=== PATIENT | male | born 2005 | race African-American/Black ===

== ENCOUNTER 2025-01-02 04:24 | Observation (INO) ==
[2025-01-02] MEDS: DEXAMETHASONE SOD INJ 4 MG/ML VIAL IV STA (04:54)
[2025-01-02] MEDS: SODIUM CHLORIDE 0.9% 1,000 ML IV ONE (04:56)
[2025-01-02] MEDS: OPTIRAY 320 100ml IV ONE (05:00)
[2025-01-02] MEDS: AMPICILLIN/SULBACTAM SOD 3,000 MG/100 ML BAG IV STA (05:01)
--- NOTE | 2025-01-02 05:07 | Emergency Department Note ---
Impression & Plan Tonsillar abscess ED Provider Note CHIEF COMPLAINT: "I had a cyst in my throat drained and it is filling back up" HISTORY OF PRESENT ILLNESS: This 19-year-old male patient presents to the emergency department via private vehicle for evaluation of tonsillar abscess. The patient states he had a tonsillar abscess I&D done on 12/20/2024. Per record review, there was not significant drainage and this was felt to be phlegmon/cellulitis of the left tonsil. The patient states over the past 24 hours, he has developed increased swelling, pain, and difficulty swallowing. He states that he took 1 Advil prior to arrival without relief. The patient denies any fever but has had chills and sweating. He is having difficulty swallowing due to the swelling in the throat. He states he is having a little bit of difficulty breathing. The patient denies any congestion or runny nose. He denies any cough. He denies any trauma or injury to the area. He was on a course of antibiotics and steroids but discontinued these recently. History provided by: Patient REVIEW OF SYSTEMS: A 10 system review of systems was performed with positives and pertinent negatives listed in the history of present illness. All other systems were reviewed and are negative. ALLERGIES: NKDA PHYSICAL EXAM: VITALS: Vitals are noted on the nurse's note and reviewed by myself. GENERAL: This is a 19-year-old male, in no acute distress, nondiaphoretic, well- developed well-nourished. SKIN: The skin was without rashes, erythema, edema, or bruising. There is no tenting of the skin. Capillary refill less than 2 seconds. HEAD: Normocephalic atraumatic. EYES: Pupils equal round and reactive to light and accommodation. Conjunctivae without injection, sclerae without icterus. Extraocular movements intact. NOSE: Patent, turbinates without inflammation or discharge. No sinus tenderness. MOUTH: Mucous membranes moist. Bilateral tonsillar enlargement with erythema and edema. The edema does extend toward the hard palate on the left. No exudate. Uvula midline. Airway patent. No stridor. Tongue does not deviate. NECK: Supple without nuchal rigidity. Anterior cervical lymphadenopathy. Cervical spine is nontender. No JVD. HEART: Regular rate and rhythm without murmurs gallops or rubs. LUNGS: Clear to auscultation bilaterally without wheezes, rales or rhonchi. No retractions or accessory muscle use. MUSCULOSKELETAL: No muscle atrophy, erythema, or edema noted. Full range of motion without joint tenderness in all extremities. No tenderness to palpation. Normal gait. Strength 5/5 throughout. NEURO: Patient was alert and oriented to person place and time. No focal neurological deficits. An order was placed for continuous teaching aide. The monitor showed a normal sinus rhythm at a ventricular rate of 82 bpm, per my interpretation. Imaging as interpreted by myself and the radiologist revealed a 20 x 28 x 30 mm left tonsillar abscess with enlargement of the bilateral palatine tonsils causing effacement of the oropharyngeal airway, with radiologist interpretation as above. I agree with the radiologist's findings as based upon my independent interpretation. EMERGENCY DEPARTMENT COURSE: The patient was evaluated as above. The patient presents to the emergency department due to concern for a left tonsillar abscess. The patient had I&D attempted on 12/20/2024. This did not yield much fluid and he was placed on steroids and antibiotics. He was doing better until more recently when he developed sudden worsening of the swelling and pain. Examination was concerning for tonsillar enlargement with erythema and edema. No exudate. IV access was obtained, labs were drawn. The patient was medicated with IV Unasyn, dexamethasone, and IV fluids. He was given Zofran and morphine for pain. CT imaging was completed and reviewed by myself and radiologist as noted. This is concerning for left tonsillar abscess and bilateral palatine tonsillar enlargement causing effacement of the oropharyngeal airway. I discussed the case with ENT, Dr. To. He did agree to evaluate the patient this morning, likely within the next hour. Please see his dictation regarding this consultation. Did recommend admission. I discussed the case with Dr. Mccormack, [facility] hospitalist physician. The patient will be admitted to the [facility]. Please see hospitalist dictation regarding admission. Case was discussed with the attending physician. I attest that I have personally reviewed the patient medication list. I attest that I have reviewed the patient's blood pressure and it was found to be elevated. Suspect this to be situational in nature. GCS: 15 In the evaluation and treatment of this patient the following differential diagnoses were entertained: Viral syndrome, strep pharyngitis, tonsillitis, mononucleosis, retropharyngeal abscess, peritonsillar abscess, otitis media, sinusitis, bronchitis, pneumonia, as well as other pathologies. The chart was completed utilizing [employer] Speech voice recognition software. Grammatical errors, random word insertions, pronoun errors, and incomplete sentences are an occasional consequence of this system due to software limitations, ambient noise, and hardware issues. Any formal questions or concerns about the content, text, or information contained within the body of this dictation should be directly addressed to the provider for clarification. Past Med/Surg History Problem List (Updated 01/02/25 @ 06:38 by Madina Terrell PA-C) Tonsillar abscess (Acute) Surgical History History of tooth extraction History of right knee surgery Family History (Updated 12/20/24 @ 14:28 by Elham Villanueva) Other No family history of adverse response to anesthesia No family history of bleeding disorder Social History Smoking Status: Current every day smoker Cigarettes Per Day: marijuana; Do You Dip or Chew Tobacco: No; Hx Alcohol Use: No Hx Substance Use: Yes Non-Prescribed Medications: Marijuana Non-Prescribed Medications Comment: Does not have medical marijuana card Preferred Language: Tuvaluan Feels Safe at Home: Yes Allergies Allergies Allergy/AdvReac Type Severity Reaction Status Date / Time No Known Drug Allergies Allergy Verified 12/20/24 14:28 Home Meds Previous Rx's Medication Instructions Recorded amoxicillin 250 mg-potassium 10 ml PO TID #2 BTLS 12/20/24 clavulanate 62.5 mg/5 mL oral suspension (Augmentin) prednisone 20 mg tablet 40 mg (2 x 20 mg) PO DAILY #14 tabs 12/20/24 Results & Data (ED) Vital Signs Vital Signs - 24 hr 01/02/25 04:28 01/02/25 04:49 01/02/25 05:20 Temperature 37.3 C Temperature Source Oral Pulse Rate 94 H 82 70 Pulse Rhythm Regular Regular Pulse Strength Normal Respiratory Rate 18 20 Respiratory Effort / Characteristics Non-Labored Spontaneous Respiratory Depth Normal Respiratory Pattern Regular Blood Pressure 142/101 H Blood Pressure Mean 114 Blood Pressure Position Sitting Pulse Oximetry 98 99 Oxygen Delivery Method Room Air Room Air Sepsis Recent Fever Within 48 Hours No Sepsis New/Unexplained Change in Mental Status N/A Sepsis Action Taken by Nursing No Action Required Laboratory Data 01/02/25 04:37 01/02/25 04:37 Lab Results 01/02/25 Range/Units 04:37 WBC 22.98 H (4.8-10.8) K/ul RBC 4.09 L (4.70-6.10) M/uL Hgb 12.6 L (14.0-18.0) g/dl Hct 38.6 L (42.0-52.0) % MCV 94.4 (80.0-100.0) fL MCH 30.8 (25.0-34.0) pg MCHC 32.6 (32.0-36.0) g/dL RDW Std Deviation 43.2 (36.4-46.3) fL RDW Coeff of Nuris 12.6 (11.5-14.5) % Plt Count 332 (130-400) K/uL MPV 10.4 (9.4-12.4) fL Immature Gran % (Auto) 0.7 % Neut % (Auto) 83.9 % Lymph % (Auto) 6.8 % [place] % (Auto) 8.1 % Eos % (Auto) 0.3 % Baso % (Auto) 0.2 % Neut # (Auto) 19.30 H (1.40-6.50) K/uL Lymph # (Auto) 1.56 (1.20-3.40) K/uL [place] # (Auto) 1.86 H (0.11-0.59) K/uL Eos # (Auto) 0.06 (0.00-0.50) K/uL Baso # (Auto) 0.05 (0.00-0.20) K/uL Immature Gran # (Auto) 0.15 (0.01-0.20) K/uL Sodium 140 (136-145) mmol/L Potassium 3.7 (3.5-5.1) mmol/L Chloride 104 (98-107) mmol/L Carbon Dioxide 30 (21-32) mmol/L Anion Gap 6 (3-11) BUN 9 (6-23) mg/dl Creatinine 1.25 (0.6-1.4) mg/dl Est Cr Clr Drug Dosing 90.4 ml/min eGFR 84.02 BUN/Creatinine Ratio 7.2 L (10-20) Glucose 113 H (70-99(Fasting)) mg/dl Calcium 9.1 (8.6-10.3) mg/dl Total Bilirubin 0.7 (0.2-1.0) mg/dl AST 19 (13-39) U/L ALT 21 (7-52) U/L Alkaline Phosphatase 73 (34-104) U/L Total Protein 7.8 (6.0-8.3) gm/dl Albumin 4.1 (3.4-5.0) gm/dl Globulin 3.7 (2.5-4.0) gm/dl Albumin/Globulin Ratio 1.1 (0.9-2) Monoscreen Negative (Negative) Administered Medications Discontinued Medications Dexamethasone (Dexamethasone Sod Inj 4 Mg/Ml Vial) 10 mg IV NOW STA Stop: 01/02/25 04:48 Last Admin: 01/02/25 04:54 Dose: 10 mg Documented By: KONG Ampicillin Sodium/Sulbactam Sodium (Unasyn) 3,000 mg in 100 mls @ 200 mls/hr IV NOW STA Stop: 01/02/25 05:16 Last Infusion: 01/02/25 05:31 Dose: Infused Documented By: Admin: 01/02/25 05:01 Dose: 200 mls/hr Documented By: KONG Sodium Chloride (Nss) 1,000 mls @ 999 mls/hr IV .Q1H1M ONE Stop: 01/02/25 05:47 Last Admin: 01/02/25 04:56 Dose: 999 mls/hr Documented By: KONG Ioversol (Optiray 320 100ml) 94 ml IV ONCE ONE Stop: 01/02/25 05:01 Last Admin: 01/02/25 05:00 Dose: 94 ml Documented By: PATRICK Morphine Sulfate (Morphine Sulfate 4 Mg/Ml 1 Ml Carp\\Vial) 4 mg IV NOW STA Stop: 01/02/25 05:21 Last Admin: 01/02/25 05:30 Dose: 4 mg Documented By: SHAHIDA Ondansetron HCl (Ondansetron Inj 2 Mg/Ml 2 Ml Vial) 4 mg IV NOW STA Stop: 01/02/25 05:21 Last Admin: 01/02/25 05:30 Dose: 4 mg Documented By: SHAHIDA Imaging Data Radiologist's Impression: Soft Tissue Neck CT 01/02/25 04:47 EXAM: CT soft tissue neck w con CLINICAL HISTORY: TELECOM BILLING ANALYST TECHNIQUE: Computed tomography of the neck was performed with intravenous contrast. Contiguous axial images were obtained. Reformatted coronal and sagittal images were also reviewed. If IV contrast material had not been administered, the likelihood of detecting abnormalities relevant to the patient's condition would have been substantially decreased. The CT scan was performed according to ALARA (as low as reasonably achievable). COMPARISON: None. FINDINGS: The bilateral palatine tonsils appear enlarged, causing effacement of the oropharyngeal airway. An approximately 22 x 28 x 30 mm heterogeneous, centrally necrotic lesion is noted involving the left tonsillar fossa, suggestive of a left tonsillar abscess. It does not extend into the adjacent parapharyngeal space. The adenoid is enlarged. The included intracranial structures, orbits, and paranasal sinuses are grossly unremarkable. The nasopharynx, rest of the oral cavity, hypopharynx, and larynx are grossly unremarkable. The parotid, submandibular, and thyroid glands are grossly unremarkable. The bilateral neck vessels are patent and show normal course, calibre, and opacification. Scattered bilateral jugulodigastric lymph nodes are present; however, none are pathologically enlarged. The visualized included lung apices are grossly clear, and no acute osseous abnormality is detected. IMPRESSION: The bilateral palatine tonsils appear enlarged, causing effacement of the oropharyngeal airway. Enlarged adenoid. An approximately 22 x 28 x 30 mm heterogeneous, centrally necrotic lesion is noted involving the left tonsillar fossa, suggestive of a left tonsillar abscess. Electronically signed by Shukri Daley 01-02-2025 05:57 AM Discharge Plan Visit Data Chief Complaint: Sore Throat Stated Complaint: THROAT CYST ED Provider: Simon Gray ED Midlevel Provider: Madina Terrell Discharge Problem: Tonsillar abscess Patient Disposition: Being Evaluated by Surgeon Condition: Good Forms Stand Alone Forms: My [facility], Important Visit Information Prescriptions Prescriptions: No Action prednisone 20 mg tablet 40 mg PO DAILY Qty: 14 0RF amoxicillin-pot clavulanate [Augmentin] 250-62.5 mg/5 mL suspension for reconstitution 10 ml PO TID Qty: 2 0RF Rx Instructions: 300mL Referrals Referrals: SELF,REFERRED [Non-Staff] -
[2025-01-02 05:12] LABS: Hematocrit (blood only) 38.6 % (42.0-52.0); Hemoglobin 12.6 g/dl (14.0-18.0); Immature Granulocytes # (auto) 0.15 K/uL (0.01-0.20); Immature Granulocytes % (auto) 0.7 %; Mean Corpuscular Hemoglobin 30.8 pg (25.0-34.0); Mean Corpuscular Volume 94.4 fL (80.0-100.0); Platelet Count 332 K/uL (130-400); RDW Standard Deviation 43.2 fL (36.4-46.3); Red Blood Count 4.09 M/uL (4.70-6.10); White Blood Count 22.98 K/ul (4.8-10.8)
[2025-01-02 05:19] LABS: Alanine Aminotransferase 21.0 U/L (7-52); Albumin Globulin Ratio 1.1 (0.9-2); Albumin Level 4.1 gm/dl (3.4-5.0); Alkaline Phosphatase 73.0 U/L (34-104); Anion Gap 6.0 (3-11); Bilirubin,Total 0.7 mg/dl (0.2-1.0); Blood Urea Nitrogen 9.0 mg/dl (6-23); Calcium 9.1 mg/dl (8.6-10.3); Carbon Dioxide 30.0 mmol/L (21-32); Chloride 104.0 mmol/L (98-107); Creatinine Clr Calc Pharmacy 90.4 ml/min; Globulin 3.7 gm/dl (2.5-4.0); Glucose 113.0 mg/dl (70-99(Fasting)); Potassium 3.7 mmol/L (3.5-5.1); Sodium 140.0 mmol/L (136-145); Total Protein 7.8 gm/dl (6.0-8.3)
[2025-01-02] MEDS: ONDANSETRON INJ 2 MG/ML 2 ML VIAL IV STA (05:30)
[2025-01-02] MEDS: MoRPHine SULFATE 4 MG/ML 1 ML CARP\\VIAL IV STA (05:30)
--- NOTE | 2025-01-02 05:57 | CT Scan Report ---
EXAM: CT soft tissue neck w con CLINICAL HISTORY: REPORT PROGRAMMER TECHNIQUE: Computed tomography of the neck was performed with intravenous contrast. Contiguous axial images were obtained. Reformatted coronal and sagittal images were also reviewed. If IV contrast material had not been administered, the likelihood of detecting abnormalities relevant to the patient's condition would have been substantially decreased. The CT scan was performed according to ALARA (as low as reasonably achievable). COMPARISON: None. FINDINGS: The bilateral palatine tonsils appear enlarged, causing effacement of the oropharyngeal airway. An approximately 22 x 28 x 30 mm heterogeneous, centrally necrotic lesion is noted involving the left tonsillar fossa, suggestive of a left tonsillar abscess. It does not extend into the adjacent parapharyngeal space. The adenoid is enlarged. The included intracranial structures, orbits, and paranasal sinuses are grossly unremarkable. The nasopharynx, rest of the oral cavity, hypopharynx, and larynx are grossly unremarkable. The parotid, submandibular, and thyroid glands are grossly unremarkable. The bilateral neck vessels are patent and show normal course, calibre, and opacification. Scattered bilateral jugulodigastric lymph nodes are present; however, none are pathologically enlarged. The visualized included lung apices are grossly clear, and no acute osseous abnormality is detected. IMPRESSION: The bilateral palatine tonsils appear enlarged, causing effacement of the oropharyngeal airway. Enlarged adenoid. An approximately 22 x 28 x 30 mm heterogeneous, centrally necrotic lesion is noted involving the left tonsillar fossa, suggestive of a left tonsillar abscess. Electronically signed by Shukri Daley 01-02-2025 05:57 AM
--- NOTE | 2025-01-02 06:31 | ENT Consultation ---
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 The patient states he had a tonsillar abscess I&D done on 12/20/2024. Per record review, there was not significant drainage and this was felt to be phlegmon/cellulitis of the left tonsil. The patient states over the past 24 hours, he has developed increased swelling, pain, and difficulty swallowing. He states that he took 1 Advil prior to arrival without relief. The patient denies any fever but has had chills and sweating. He is having difficulty swallowing due to the swelling in the throat. He states he is having a little bit of difficulty breathing. The patient denies any congestion or runny nose. He denies any cough. He denies any trauma or injury to the area. He was on a course of antibiotics and steroids but discontinued these recently. Allergies Allergy/AdvReac Type Severity Reaction Status Date / Time No Known Drug Allergies Allergy Verified 12/20/24 14:28 Home Medications Medication Instructions Recorded Confirmed Type amoxicillin 250 mg-potassium 10 ml PO TID #2 BTLS 12/20/24 12/20/24 Rx clavulanate 62.5 mg/5 mL oral suspension (Augmentin) prednisone 20 mg tablet 40 mg (2 x 20 mg) PO DAILY #14 tabs 12/20/24 12/20/24 Rx Patient History Surgical History History of tooth extraction History of right knee surgery Family History (Updated 12/20/24 @ 14:28 by Elham Villanueva) Other No family history of adverse response to anesthesia No family history of bleeding disorder Social History Smoking Status: Current every day smoker Cigarettes Per Day: marijuana; Do You Dip or Chew Tobacco: No; Hx Alcohol Use: No Hx Substance Use: Yes Non-Prescribed Medications: Marijuana Non-Prescribed Medications Comment: Does not have medical marijuana card Preferred Language: Romansh Feels Safe at Home: Yes Review of Systems Ear, Nose, Mouth, Throat: as per Subjective / HPI Physical Exam Physical Exam: General: No acute distress, nonlabored respirations Face: normal facial motion Eyes: Extraocular motion is intact. Normal sclera and conjunctiva Ears: External auditory canals are clear. Tympanic membrane is intact and the middle ear is aerated bilaterally. Nose: no external deformity, nares patent. No rhinorrhea or epistaxis. Oral cavity: clear Oropharynx: VERY swollen over palate and lateral to tonsil w uvular shift to rt Notable trismus Neck: soft, no masses or lymphadenopathy ENT PROCEDURE - Drainage tonsil abscess - Local anesthesia Lidocaine w epi ~ 3 c c - difficult aspiration but ultimately in cision w 15 blade, abscess pocket entered and expanded w hemostat - free flow > 5 cc pu - cultures sent - pt very cooperative and experienced im mediate relief Results & Data Vital Signs (Past 12 Hours) Vital Signs Temp Pulse Resp BP Pulse Ox O2 Del Method 01/02/25 05:20 70 20 99 Room Air 01/02/25 04:49 82 01/02/25 04:28 37.3 C 94 H 18 142/101 H 98 Room Air Laboratory Results Laboratory Results - last 24 hr 01/02/25 01/02/25 04:37 05:34 WBC 22.98 H RBC 4.09 L Hgb 12.6 L Hct 38.6 L MCV 94.4 MCH 30.8 MCHC 32.6 RDW Std Deviation 43.2 RDW Coeff of Nuris 12.6 Plt Count 332 MPV 10.4 Immature Gran % (Auto) 0.7 Neut % (Auto) 83.9 Lymph % (Auto) 6.8 [place] % (Auto) 8.1 Eos % (Auto) 0.3 Baso % (Auto) 0.2 Neut # (Auto) 19.30 H Lymph # (Auto) 1.56 [place] # (Auto) 1.86 H Eos # (Auto) 0.06 Baso # (Auto) 0.05 Immature Gran # (Auto) 0.15 Sodium 140 Potassium 3.7 Chloride 104 Carbon Dioxide 30 Anion Gap 6 BUN 9 Creatinine 1.25 Est Cr Clr Drug Dosing 90.4 eGFR 84.02 BUN/Creatinine Ratio 7.2 L Glucose 113 H Calcium 9.1 Total Bilirubin 0.7 AST 19 ALT 21 Alkaline Phosphatase 73 Total Protein 7.8 Albumin 4.1 Globulin 3.7 Albumin/Globulin Ratio 1.1 Monoscreen Negative Group A Strep (PCR) Pending Diagnostic Findings Soft Tissue Neck CT 01/02/25 04:47 EXAM: CT soft tissue neck w con CLINICAL HISTORY: MANAGER SHAREPOINT TECHNIQUE: Computed tomography of the neck was performed with intravenous contrast. Contiguous axial images were obtained. Reformatted coronal and sagittal images were also reviewed. If IV contrast material had not been administered, the likelihood of detecting abnormalities relevant to the patient's condition would have been substantially decreased. The CT scan was performed according to ALARA (as low as reasonably achievable). COMPARISON: None. FINDINGS: The bilateral palatine tonsils appear enlarged, causing effacement of the oropharyngeal airway. An approximately 22 x 28 x 30 mm heterogeneous, centrally necrotic lesion is noted involving the left tonsillar fossa, suggestive of a left tonsillar abscess. It does not extend into the adjacent parapharyngeal space. The adenoid is enlarged. The included intracranial structures, orbits, and paranasal sinuses are grossly unremarkable. The nasopharynx, rest of the oral cavity, hypopharynx, and larynx are grossly unremarkable. The parotid, submandibular, and thyroid glands are grossly unremarkable. The bilateral neck vessels are patent and show normal course, calibre, and opacification. Scattered bilateral jugulodigastric lymph nodes are present; however, none are pathologically enlarged. The visualized included lung apices are grossly clear, and no acute osseous abnormality is detected. IMPRESSION: The bilateral palatine tonsils appear enlarged, causing effacement of the oropharyngeal airway. Enlarged adenoid. An approximately 22 x 28 x 30 mm heterogeneous, centrally necrotic lesion is noted involving the left tonsillar fossa, suggestive of a left tonsillar abscess. Electronically signed by Shukri Daley 01-02-2025 05:57 AM PG Care Time/CCT Total # of Minutes Spent Total Time Spent: 60 Total Time Spent with Patient: Total time spent is greater than 50% in coordination of care (as documented) at patient's floor/unit and/or counseling patient: Coding Level of Care Code 92990 IN/OBS CONSULT LVL 4,60M Diagnoses Tonsillar abscess J36 CPT Codes Drainage of Tonsil Abscess - 83133 ([id number])
--- NOTE | 2025-01-02 06:35 | Emergency Department Note ---
ED Visit Note Physician Evaluation Note: Patient was seen in conjunction with the midlevel provider. Please see the midlevel provider note for full details of the patient's visit. I have personally evaluated and examined this patient. Patient presented to the ED with difficulty swallowing, history of pharyngeal cyst. On my assessment here in the ED the patient does have significant edema of the posterior pharynx, he is saturating well on room air but he is having some difficulty swallowing and has a muffled voice. CT imaging was obtained that showed evidence of a large tonsillar abscess. ENT was consulted and is in agreement for operative intervention for drainage later this morning. Patient was placed for admission to the hospitalist service for further management. Patient was started on IV steroids and antibiotics prior to admission. I agree with assessment and plan of KAREEM Werner DO .
[2025-01-02] MEDS: BENZOCAINE/TETRACAIN/BUTAM 50 APPLN/5 GM CAN EXT ONE (07:31)
[2025-01-02] MEDS ORDERED: ACETAMINOPHEN 325 MG TAB PO PRN (07:49)
--- NOTE | 2025-01-02 07:57 | History & Physical Report ---
Date of Service January 02, 2025 Assessment & Plan (1) Tonsillar abscess: Plan Tonsillar Abscess Appreciate ENT drainage - will follow up gram stain and culture Continue ENT plan with IV Unasyn and 10mg IV Decadron q6h as discussed with Dr To If doing well tomorrow morning can likely be discharged at that time VTE Prophylaxis - low risk Disposition - observation to med/surg Admission and Anticipated Discharge Date Admission Date: January 02, 2025 Anticipated date of discharge: 01/03/25 History of Present Illness Chief Complaint: Sore throat with abscess Primary Care Provider: [facility] Noah Golden is a 19 year old male who presents to the ER with worsening sore throat. He denies notes difficulty eating solid food but no difficulties with drinking or breathing. Initial sore throat started 3 weeks ago and had I&D performed in the office on 12/20 without significant purulent feedback. He was started on Augmentin and prednisone and initially felt better. Symptoms returned 2 days ago and now appear to be much worse with difficulty opening his mouth. No fever or chills. Otherwise well. Allergies Allergy/AdvReac Type Severity Reaction Status Date / Time No Known Drug Allergies Allergy Verified 01/02/25 08:21 Home Medications Medication Instructions Recorded Confirmed Type No Known Home Medications 01/02/25 01/02/25 History Past Med/Surg History Problem List (Updated 01/02/25 @ 06:38 by Madina Terrell PA-C) Tonsillar abscess (Acute) Surgical History History of tooth extraction History of right knee surgery Family History (Updated 12/20/24 @ 14:28 by Elham Villanueva) Other No family history of adverse response to anesthesia No family history of bleeding disorder Social History Smoking Status: Never smoker Second Hand Exposure: No; Do You Dip or Chew Tobacco: No; Hx Alcohol Use: No Hx Substance Use: Yes Non-Prescribed Medications: Marijuana Non-Prescribed Medications Comment: Does not have medical marijuana card Preferred Language: Faroese Communication Ability: Effective [place] [employer] Required: No Beliefs That Will Affect Care: None Current Living Situation: Other Current Living Situation Comment: roommates Other Information That Helps Us Care for You: No Feels Safe at Home: Yes Safety Concerns: Feels Safe At This Time Assistive Devices: None Review of Systems Review of Systems: All systems reviewed & are unremarkable except as noted in HPI & below Physical Exam Constitutional: WD/WN, vitals as above ENMT: Difficulty opening mouth full way, unable to view pharynx Respiratory: normal respiratory effort, lungs clear to auscultation Cardiovascular: RRR, no murmur, no edema Gastrointestinal (Abdomen): normal bowel sounds, soft, nontender, no hepatospl enomegaly Results & Data Results & Data Vital Signs (Past 12 Hours) Vital Signs Temp Pulse Pulse Resp BP BP Pulse Ox 01/02/25 07:42 67 18 152/74 H 97 01/02/25 06:00 68 16 135/86 96 01/02/25 05:20 70 20 99 01/02/25 04:49 82 01/02/25 04:28 37.3 C 94 H 18 142/101 H 98 O2 Del Method 01/02/25 07:42 Room Air 01/02/25 06:00 Room Air 01/02/25 05:20 Room Air 01/02/25 04:49 01/02/25 04:28 Room Air Laboratory Results Abnormal lab results 01/02/25 01/02/25 Range/Units 04:37 04:51 WBC 22.98 H (4.8-10.8) K/ul RBC 4.09 L (4.70-6.10) M/uL Hgb 12.6 L (14.0-18.0) g/dl POC Hgb 13.3 L (14.0-18.0) g/dl Hct 38.6 L (42.0-52.0) % POC Hct 39 L (42-52) % Neut # (Auto) 19.30 H (1.40-6.50) K/uL Bailey # (Auto) 1.86 H (0.11-0.59) K/uL POC Anion Gap 14.0 L (16-25) mmol/L BUN/Creatinine Ratio 7.2 L (10-20) Glucose 113 H (70-99(Fasting)) mg/dl POC Glucose (other) 113 H (70-99) mg/dl Diagnostic Findings CT soft tissue neck w con CLINICAL HISTORY: [employer] TECHNIQUE: Computed tomography of the neck was performed with intravenous contrast. Contiguous axial images were obtained. Reformatted coronal and sagittal images were also reviewed. If IV contrast material had not been administered, the likelihood of detecting abnormalities relevant to the patient's condition would have been substantially decreased. The CT scan was performed according to ALARA (as low as reasonably achievable). COMPARISON: None. FINDINGS: The bilateral palatine tonsils appear enlarged, causing effacement of the oropharyngeal airway. An approximately 22 x 28 x 30 mm heterogeneous, centrally necrotic lesion is noted involving the left tonsillar fossa, suggestive of a left tonsillar abscess. It does not extend into the adjacent parapharyngeal space. The adenoid is enlarged. The included intracranial structures, orbits, and paranasal sinuses are grossly unremarkable. The nasopharynx, rest of the oral cavity, hypopharynx, and larynx are grossly unremarkable. The parotid, submandibular, and thyroid glands are grossly unremarkable. The bilateral neck vessels are patent and show normal course, calibre, and opacification. Scattered bilateral jugulodigastric lymph nodes are present; however, none are pathologically enlarged. The visualized included lung apices are grossly clear, and no acute osseous abnormality is detected. IMPRESSION: The bilateral palatine tonsils appear enlarged, causing effacement of the oropharyngeal airway. Enlarged adenoid. An approximately 22 x 28 x 30 mm heterogeneous, centrally necrotic lesion is noted involving the left tonsillar fossa, suggestive of a left tonsillar abscess. Medications Administered ER Medications Given: Unasyn 3000mg IV Dexamethasone 10mg IV Morphine 4mg IV Ondansetron 4mg IV Code Status & VTE Plan Code Status Full VTE Prophylaxis Plan VTE Prophylaxis will be ordered: No Reason for no VTE drug order: Treatment not indicated PG Care Time/CCT Total # of Minutes Spent Total Time Spent with Patient: Total time spent is greater than 50% in coordination of care (as documented) at patient's floor/unit and/or counseling patient: Coding Level of Care Code 47192 INT INP/OBS CARE MIN Diagnoses Tonsillar abscess J36
[2025-01-02] MEDS: KETOROLAC TROMETHAMINE 15 MG/ML VIAL IV PRN (08:02)
[2025-01-02 10:47] VITALS: RESP 18
[2025-01-02] MEDS ORDERED: DEXAMETHASONE SOD INJ 4 MG/ML VIAL IV SCH (12:00)
[2025-01-02] MEDS: dexAMETHasone 10 MG in SYRINGE 0 ML IV SCH (12:00)
[2025-01-02] MEDS: AMPICILLIN/SULBACTAM SOD 3,000 MG/100 ML BAG IV SCH (12:07)
[2025-01-02] MEDS: BENZOCAINE/TETRACAIN/BUTAM 50 APPLN/5 GM CAN EXT STA (16:25)
[2025-01-02] MEDS: LIDOCAINE 1%/EPINEPHRINE 1:100,000 50 ML VIAL INFIL ONE (16:25)
[2025-01-02] MEDS: CHLORHEXIDINE GLUCONATE 0.12% 480 ML MT SCH (22:01)
[2025-01-02 23:23] VITALS: O2SAT 96
[2025-01-03 08:05] VITALS: BP 136/77; PULSE 86; TEMP 97.7
--- NOTE | 2025-01-03 09:17 | Discharge Summary ---
Discharge Summary Date of Service January 03, 2025 Principal Dx & Hospital Course #1 = Principal Diagnosis (1) Tonsillar abscess: Plan Noah Golden is a 19 year old male observed at [facility] from January 02 - 2024 due to sore throat. He was diagnosed with tonsillar abscess which was drained by ENT. Culture is currently pending at time of discharge. You were treated with IV steroids and Unasyn overnight and improved. Please continue on Augmentin and prednisone taper on discharge and follow up with ENT for ongoing treatment. If repeated infections recommend tonsillectomy. Admission HPI Per Admitting Provider Noah Golden is a 19 year old male who presents to the ER with worsening sore throat. He denies notes difficulty eating solid food but no difficulties with drinking or breathing. Initial sore throat started 3 weeks ago and had I&D performed in the office on 12/20 without significant purulent feedback. He was started on Augmentin and prednisone and initially felt better. Symptoms returned 2 days ago and now appear to be much worse with difficulty opening his mouth. No fever or chills. Otherwise well. Discharge Exam Constitutional WD/WN, vitals as above Respiratory normal respiratory effort, lungs clear to auscultation Cardiovascular RRR, no murmur, no edema Gastrointestinal (Abdomen) normal bowel sounds, soft, nontender, no hepatosplenomegaly Discharge Plan Discharge Items Patient Disposition: Home - Self-Care Reason For Visit: TONSILLAR ABSCESS Discharge Diagnosis: Tonsillar abscess Condition on Discharge: Good Activity: Resume your previous activity Non-emergency contact: Surgeon Call non-emergency contact if: you have any medication questions and your symptoms worsen Follow-up/Referrals: [facility] [Primary Care Provider] - (No routine follow up required) Roel To MD [Physician] - (Follow up tonsillar abscess) Diet: Regular Addtl Attending Provider Instructions: You were observed at [facility] from January 022024 due to sore throat. You were diagnosed with tonsillar abscess which was drained by ENT. Culture is currently pending at this time. You were treated with IV steroids and Unasyn overnight and improved. Please continue on Augmentin and prednisone taper on discharge and follow up with ENT for ongoing treatment. If repeated infections recommend tonsillectomy. Pending Studies at Discharge: Yes (throat culture) Stand-Alone Forms: [facility], Smoking Cessation Medications and DC Order Prescriptions: New amoxicillin-pot clavulanate 875-125 mg tablet 1 tab PO BID 9 Days Qty: 18 0RF prednisone 10 mg tablet See Rx Instructions .ROUTE .COMPLEX Qty: 10 0RF Rx Instructions: 40mg for one day, then 30mg for one day, then 20mg for one day, then 10mg for one day Discharge Orders: Discharge Order (Routine); Ordered 01/03/25 Ordered By: Jed Zendejas Admission Data Admit Date/Time: 01/02/25 07:50 Attending Provider: Jed Zendejas Admit Provider: Jed Zendejas Primary Care Provider: [facility] Other Providers: Roel To; Jed Zendejas Hospital Stay Data Consultations 01/02/25 06:06 Consult Otolaryngology (Head and Neck) Stat 01/02/25 06:32 ED Decision to Admit Stat Diagnostic Imagining Performed 01/02/25 04:47 CT soft tissue neck w con Stat Pending Results Patient Have Any Pending Studies at Discharge: Yes (throat culture) Discharge Instructions Given to Patient (Per Discharging Provider) You were observed at [facility] from January 02 - 2024 due to sore throat. You were diagnosed with tonsillar abscess which was drained by ENT. Culture is currently pending at this time. You were treated with IV steroids and Unasyn overnight and improved. Please continue on Augmentin and prednisone taper on discharge and follow up with ENT for ongoing treatment. If repeated infections recommend tonsillectomy. Coding Diagnoses Tonsillar abscess J36
[2025-01-03] MEDS: INFLUENZA VACC TS2025-26(6m+)/PF (IIV3) 0.5mL Syr IM ONE (10:03)
== END 2025-01-03 10:02 | disposition home or self-care (01) ==
LOC: ED 04:24 → EDINP 04:24 → 3E 16:25